=== PATIENT | female | born 1955 | race Caucasian/White ===

== ENCOUNTER 2018-02-26 13:04 | Inpatient (IN) | payer MEDICARE, OTHER ==
[2018-02-26] MEDS: SOD CHLORIDE 0.9% 500 ML IV (13:17)
[2018-02-26 13:26] LABS: ADD MAN DIFF? NO
[2018-02-26 13:30] LABS: BASOPHIL # 0.1 10^3/ul (0.0-0.1); BASOPHILS % 0.7 % (0.0-2.0); EOSINOPHILS # 0.1 10^3/ul (0.0-0.5); EOSINOPHILS % 1.6 % (0.0-7.0); HEMATOCRIT 36.6 % (37.0-47.0); HEMOGLOBIN 12.1 g/dl (12.0-16.0); LYMPHOCYTES # 2.5 10^3/ul (0.8-2.9); LYMPHOCYTES % 34.6 % (15.0-51.0); MEAN CORPUSCULAR HGB CONC 33.1 g/dl (32.0-37.0); MEAN CORPUSCULAR VOLUME 90.8 fl (82.0-101.0); MEAN PLATELET VOLUME 9.6 fl (7.4-10.4); MONOCYTE # 0.6 10^3/ul (0.3-0.9); MONOCYTES % 8.5 % (0.0-11.0); NEUTROPHIL # 3.9 10^3/ul (1.6-7.5); NEUTROPHILS % 54.2 % (39.0-77.0); PLATELET COUNT 243 10^3/UL (140-415); RED BLOOD COUNT 4.03 10^6/ul (4.20-5.40); RED CELL DISTRIBUTION WIDTH 12.8 % (11.5-14.5)
[2018-02-26 13:30] LABS: WHITE BLOOD COUNT 7.3 10^3/ul (4.8-10.8)
[2018-02-26 13:47] LABS: ALANINE AMINOTRANSFERASE 66 IU/L (13-69); ALBUMIN 5.1 g/dl (3.3-4.9); ALBUMIN/GLOBULIN RATIO 1.34; ALKALINE PHOSPHATASE 65 IU/L (42-121); ANION GAP 14 (8-16); ASPARTATE AMINO TRANSFERASE 37 IU/L (15-46); BILIRUBIN,INDIRECT 0.7 mg/dl (0-1.1); BILIRUBIN,TOTAL 0.7 mg/dl (0.2-1.3); BLOOD UREA NITROGEN 13 mg/dl (7-20); CARBON DIOXIDE 28 mmol/L (21-31); CHLORIDE 102 mmol/L (97-110); CHOL/HDL RATIO 2.7 RATIO; CHOLESTEROL 202 mg/dl (100-200); CREATINE KINASE 78 IU/L (23-200); CREATININE 0.72 mg/dl (0.44-1.00); GLUCOSE 113 mg/dl (70-220); HDL CHOLESTEROL 74 mg/dl (35-98); LDL CHOLESTEROL,CALCULATED 103 mg/dl; POTASSIUM 3.4 mmol/L (3.5-5.1); SODIUM 141 mmol/L (135-144); TOTAL PROTEIN 8.9 g/dl (6.1-8.1); TRIGLYCERIDES 126 mg/dl (0-149)
[2018-02-26] MEDS: IOHEXOL 100 ML (13:48)
[2018-02-26] MEDS: SOD CHLORIDE 0.9% 100 ML (13:48)
[2018-02-26 13:51] LABS: HEMOGLOBIN A1C 5.3 % (0-5.9)
[2018-02-26 13:54] LABS: INR 0.95; PROTIME 12.8 Sec (11.9-14.9)
[2018-02-26 13:55] LABS: PARTIAL THROMBOPLASTIN TIME 31.7 Sec (25.0-35.0)
[2018-02-26 13:58] LABS: CK INDEX 0.5; CK-MB 0.41 ng/ml (0.0-2.4); TROPONIN-I < 0.010 ng/ml (0.000-0.120)
[2018-02-26] MEDS: ASPIRIN 81 MG TAB PO (14:46)
[2018-02-26] MEDS ORDERED: ONDANSETRON 4 MG INJ IV (15:00)
[2018-02-26] MEDS ORDERED: NACL 0.9% 3 ML SYG IV (15:00)
[2018-02-26] MEDS ORDERED: ACETAMINOPHEN 325 MG TAB PO ×2 (15:00)
[2018-02-26 15:26] LABS: ADD UMIC YES; UR ASCORBIC ACID NEGATIVE (NEGATIVE); UR BILIRUBIN (Dip) NEGATIVE (NEGATIVE); UR BLOOD (Dip) NEGATIVE (NEGATIVE); UR CLARITY SLIGHTLY CLOUDY (CLEAR); UR COLOR STRAW (YELLOW); UR GLUCOSE (Dip) NEGATIVE (NEGATIVE); UR KETONES (Dip) NEGATIVE (NEGATIVE); UR LEUKOCYTE ESTERASE (Dip) 3+ Leu/ul (NEGATIVE); UR NITRITE (Dip) NEGATIVE (NEGATIVE); UR NONSQUAMOUS EPITHELIAL CELL 4 /HPF (NONE SEEN); UR RBC 1 /HPF (0-5); UR SPECIFIC GRAVITY (Dip) 1.018 (1.003-1.030); UR SQUAMOUS EPITHELIAL CELL MODERATE /HPF (FEW); UR TOTAL PROTEIN (Dip) NEGATIVE (NEGATIVE); UR UROBILINOGEN (Dip) NEGATIVE (NEGATIVE); UR WBC 23 /HPF (0-5)
[2018-02-26 15:27] LABS: AMPHETAMINE/METHAMPHETAMINE Negative (NEGATIVE); BARBITURATES Negative (NEGATIVE); BENZODIAZEPINES Negative (NEGATIVE); CANNABINOIDS Negative (NEGATIVE); COCAINE Negative (NEGATIVE); OPIATES Negative (NEGATIVE)
[2018-02-26] MEDS: CLOPIDOGREL 75 MG TAB PO (16:32)
[2018-02-26] MEDS: POTASSIUM CHLORIDE (SR) 20 MEQ TAB PO (16:33)
[2018-02-26] MEDS: ATORVASTATIN 40 MG TAB PO (21:32)
[2018-02-27 06:50] LABS: ADD MAN DIFF? NO
[2018-02-27 07:16] LABS: BASOPHIL # 0.1 10^3/ul (0.0-0.1); EOSINOPHILS # 0.2 10^3/ul (0.0-0.5); EOSINOPHILS % 2.7 % (0.0-7.0); HEMATOCRIT 32.8 % (37.0-47.0); LYMPHOCYTES # 2.1 10^3/ul (0.8-2.9); LYMPHOCYTES % 36.8 % (15.0-51.0); MEAN CORPUSCULAR HEMOGLOBIN 30.7 pg (29.0-33.0); MEAN CORPUSCULAR HGB CONC 33.5 g/dl (32.0-37.0); MEAN CORPUSCULAR VOLUME 91.6 fl (82.0-101.0); MEAN PLATELET VOLUME 10.2 fl (7.4-10.4); MONOCYTE # 0.5 10^3/ul (0.3-0.9); MONOCYTES % 8.4 % (0.0-11.0); NEUTROPHIL # 2.9 10^3/ul (1.6-7.5); NEUTROPHILS % 50.4 % (39.0-77.0); PLATELET COUNT 234 10^3/UL (140-415); RED BLOOD COUNT 3.58 10^6/ul (4.20-5.40)
[2018-02-27 07:16] LABS: WHITE BLOOD COUNT 5.8 10^3/ul (4.8-10.8)
[2018-02-27 07:20] LABS: HEMOGLOBIN A1C 5.2 % (0-5.9)
[2018-02-27 07:24] LABS: ANION GAP 11 (8-16); BLOOD UREA NITROGEN 12 mg/dl (7-20); CALCIUM 9.4 mg/dl (8.4-10.2); CARBON DIOXIDE 27 mmol/L (21-31); CHLORIDE 107 mmol/L (97-110); CHOL/HDL RATIO 2.8 RATIO; CHOLESTEROL 171 mg/dl (100-200); GLUCOSE 93 mg/dl (70-220); HDL CHOLESTEROL 61 mg/dl (35-98); LDL CHOLESTEROL,CALCULATED 96 mg/dl; MAGNESIUM 2.1 mg/dl (1.7-2.5); POTASSIUM 4.3 mmol/L (3.5-5.1); SODIUM 141 mmol/L (135-144); TRIGLYCERIDES 69 mg/dl (0-149)
[2018-02-27] MEDS: LEVOTHYROXINE 50 MCG TAB PO (07:24)
[2018-02-27] MEDS ORDERED: ASPIRIN 81 MG TAB PO (09:00)
[2018-02-27] MEDS: PYRIDOXINE 50 MG TAB PO (09:16)
[2018-02-27] MEDS: CLOPIDOGREL 75 MG TAB PO (09:16)
[2018-02-27] MEDS: THIAMINE 100 MG TAB PO (09:16)
[2018-02-27] MEDS: ENOXAPARIN 40 MG/0.4 ML SYG SC (09:18)
[2018-02-27] MEDS: predniSONE 20 MG TAB PO (14:01)
== END 2018-02-27 14:45 | disposition home or self-care (01) | DRG 74 ==
LOC: E/R 13:04 → TEL 14:37
DX: G51.0 Bell's palsy (principal); E66.9 Obesity, unspecified; Z68.34 Body mass index [BMI] 34.0-34.9, adult; I10 Essential (primary) hypertension; E78.5 Hyperlipidemia, unspecified; E03.9 Hypothyroidism, unspecified
CPT/HCPCS: 36415; 70450; 70496; 70498; 70546; 70549; 70553; 71045; 80048; 80053; 80061; 80307; 81001; 82550; 82553; 82962; 83036; 83735; 84443; 84484; 85025; 85610; 85730; 92610; 93005; 93306; 97161; 97165; 99291-25